=== PATIENT | female | born 1945 | race Caucasian/White ===

== ENCOUNTER 2016-06-27 09:49 | Inpatient (IN) | payer MEDICARE, OTHER ==
[~2016-06-27 09:49] MED LIST: ceFAZolin 1 GM VIAL ONE
[2016-06-27] MEDS ORDERED: LACTATED RINGERS 1,000 ML IV ONE ×3 (10:06→14:32)
[2016-06-27] MEDS ORDERED: LIDOCAINE-MPF 2% 5 ML VIAL IM ONE (12:25)
[2016-06-27] MEDS ORDERED: MORPHINE PF 5 MG/10 ML AMP EP ONE (12:25)
[2016-06-27] MEDS ORDERED: DEXAMETHASONE 4 MG/ML VIAL IVP ONE (12:25)
[2016-06-27] MEDS ORDERED: MIDAZOLAM 2 MG/2 ML VIAL IVP ONE (12:25)
[2016-06-27] MEDS ORDERED: TRANEXAMIC ACID 1,000 MG/10 ML VIAL IV ONE (12:25)
[2016-06-27] MEDS ORDERED: PROPOFOL 200 MG/20 ML VIAL IVP ONE (12:25)
[2016-06-27] MEDS ORDERED: PHENYLEPHRINE 50 MG/5 ML VIAL IV ONE (12:25)
[2016-06-27] MEDS ORDERED: ePHEDrine 50 MG/ML AMP IVP ONE (12:25)
[2016-06-27] MEDS ORDERED: ACETAMINOPHEN 1,000 MG/100 ML VIAL IV ONE (12:25)
[2016-06-27] MEDS ORDERED: KETOROLAC 30 MG/ML VIAL IVP ONE (12:25)
[2016-06-27] MEDS ORDERED: BISACODYL 10 MG SUPP PR PRN (13:23)
[2016-06-27] MEDS ORDERED: ACETAMINOPHEN 325 MG TABLET PO PRN (13:23)
[2016-06-27] MEDS ORDERED: ONDANSETRON 4 MG/2 ML VIAL IVP PRN (13:23)
[2016-06-27] MEDS ORDERED: SODIUM CHLORIDE FLUSH 0.9% 10 ML SYRINGE IVP PRN (13:23)
[2016-06-27] MEDS: D5.45NS W/20 MEQ KCL 1,000 ML IV SCH ×2 (15:08→23:48)
[2016-06-27] MEDS: oxyCOD/ACETAMIN 5 MG/325 MG TABLET PO PRN (19:25)
[2016-06-27] MEDS: ceFAZolin 2 GM/50 ML 50 ML IV SCH (19:26)
[2016-06-27] MEDS: PRAVASTATIN 40 MG TABLET PO SCH (20:46)
[2016-06-27] MEDS: MORPHINE 2 MG/ML SYRINGE IVP PRN ×2 (22:02→23:49)
[2016-06-27] MEDS: SODIUM CHLORIDE FLUSH 0.9% 10 ML SYRINGE IVP SCH ×2 (23:41→23:42)
[2016-06-28] MEDS: MORPHINE 2 MG/ML SYRINGE IVP PRN (02:47)
[2016-06-28] MEDS: ceFAZolin 2 GM/50 ML 50 ML IV SCH (04:06)
[2016-06-28] MEDS: oxyCOD/ACETAMIN 5 MG/325 MG TABLET PO PRN ×4 (04:45→20:54)
[2016-06-28] MEDS: SODIUM CHLORIDE FLUSH 0.9% 10 ML SYRINGE IVP SCH ×3 (06:34→20:57)
[2016-06-28] MEDS: LEVOTHYROXINE 100 MCG TABLET PO SCH (06:41)
[2016-06-28] MEDS: SENNA 8.6 MG TABLET PO PRN ×2 (08:31→20:54)
[2016-06-28] MEDS: ASPIRIN 325 MG TABLET PO SCH ×2 (08:31→20:54)
[2016-06-28] MEDS: D5.45NS W/20 MEQ KCL 1,000 ML IV SCH (10:01)
[2016-06-28] MEDS: PRAVASTATIN 40 MG TABLET PO SCH (20:56)
[2016-06-29] MEDS: oxyCOD/ACETAMIN 5 MG/325 MG TABLET PO PRN ×3 (00:50→11:09)
[2016-06-29] MEDS: SODIUM CHLORIDE FLUSH 0.9% 10 ML SYRINGE IVP SCH (07:00)
[2016-06-29] MEDS: LEVOTHYROXINE 100 MCG TABLET PO SCH (07:00)
[2016-06-29] MEDS: SENNA 8.6 MG TABLET PO PRN (09:00)
[2016-06-29] MEDS: ASPIRIN 325 MG TABLET PO SCH (09:00)
== END 2016-06-29 11:10 | disposition home or self-care (01) | DRG 470 ==
PROC: 0SR902A Replacement of Right Hip Joint with Metal on Polyethylene Synthetic Substitute, Uncemented, Open Approach (ICD-10-PCS; principal; 2016-06-27 11:00)
DX: M16.11 Unilateral primary osteoarthritis, right hip (principal); E03.9 Hypothyroidism, unspecified; D64.9 Anemia, unspecified; R11.0 Nausea; E78.5 Hyperlipidemia, unspecified; Z87.891 Personal history of nicotine dependence

== ENCOUNTER 2017-01-18 08:00 | Outpatient (CLI) | payer MEDICARE, OTHER ==
[2017-01-18 13:28] LABS: BILIRUBIN,TOTAL 0.6 mg/dL (0.2-1.0); BUN - BLOOD UREA NITROGEN 21 mg/dL (6-20); CALCIUM 9.4 mg/dL (8.5-10.3); CARBON DIOXIDE - CO2 28 mmol/L (21-32); CHLORIDE 105 mmol/L (101-111); CHOL/HDL RATIO 2.7 (<4.4); CHOLESTEROL 206 mg/dL; CREATININE 0.7 mg/dL (0.4-1.0); GFR - MDRD 83 (>89); GLUCOSE 96 mg/dL (70-100); HDL CHOLESTEROL 77 mg/dL; LDL/HDL RATIO 1.3 (<4.4); SODIUM 139 mmol/L (135-145); TRIGLYCERIDES 141 mg/dL; VLDL CHOLESTEROL 28 mg/dL
== END 2017-01-18 08:01 | disposition home or self-care (01) ==
LOC: LAB.R 08:00
PROVIDERS: ATTEND Internal Medicine
DX: Z79.899 Other long term (current) drug therapy (principal); Z72.89 Other problems related to lifestyle; E03.9 Hypothyroidism, unspecified
CPT/HCPCS: 80053; 80061; 84443; 86803

== ENCOUNTER 2017-05-16 08:00 | Outpatient (CLI) | payer MEDICARE, OTHER | END 2017-05-16 08:01 | disposition home or self-care (01) | LOC: LAB.R 08:00 | PROVIDERS: ATTEND Nurse Practitioner Primary Care | DX: N39.0 Urinary tract infection, site not specified (principal) | CPT/HCPCS: 87086 ==

== ENCOUNTER 2018-04-05 09:15 | Outpatient (CLI) | payer MEDICARE, OTHER ==
[2018-04-05 13:01] LABS: BASOPHILS % (AUTO) 0.3 %; EOSINOPHILS # (AUTO) 0.1 10^3/uL (0.0-0.7); EOSINOPHILS % (AUTO) 2.1 %; HGB - HEMOGLOBIN 12.7 g/dL (12.0-16.0); LYMPHOCYTES % (AUTO) 40.7 %; MEAN CORPUSCULAR HEMOGLOBIN 33.5 pg (27.0-31.0); MEAN CORPUSCULAR HGB CONC 34.5 g/dL (32.0-36.0); MEAN CORPUSCULAR VOLUME 97.3 fL (81.0-99.0); MEAN PLATELET VOLUME 8.6 fL (7.9-10.8); MONOCYTES # (AUTO) 0.5 10^3/uL (0.0-1.0); NEUTROPHILS # (AUTO) 2.3 10^3/uL (1.5-6.6); NEUTROPHILS % (AUTO) 46.9 %; PLT - PLATELET COUNT 178 10^3/uL (130-450); RED BLOOD COUNT 3.79 10^6/uL (4.20-5.40); WHITE BLOOD COUNT 4.8 x10^3/uL (4.8-10.8)
[2018-04-05 13:15] LABS: ALBUMIN 4.2 g/dL (3.2-5.5); ALBUMIN/GLOBULIN RATIO 1.7 (1.0-2.2); ALKALINE PHOSPHATASE 66 IU/L (42-121); ALT ALANINE AMINOTRANSFERASE 24 IU/L (10-60); AST ASPARTATE AMINOTRANSFERASE 21 IU/L (10-42); BILIRUBIN,TOTAL 0.7 mg/dL (0.2-1.0); BUN - BLOOD UREA NITROGEN 22 mg/dL (6-20); CALCIUM 9.3 mg/dL (8.5-10.3); CARBON DIOXIDE - CO2 27 mmol/L (21-32); CHLORIDE 103 mmol/L (101-111); CHOLESTEROL 208 mg/dL; CREATININE 0.7 mg/dL (0.4-1.0); GFR - MDRD 82 (>89); GLUCOSE 95 mg/dL (70-100); HDL CHOLESTEROL 70 mg/dL; LDL CHOLESTEROL,CALCULATED 106 mg/dL; LDL/HDL RATIO 1.5 (<4.4); SODIUM 137 mmol/L (135-145); TOTAL PROTEIN 6.7 g/dL (6.7-8.2); VLDL CHOLESTEROL 32 mg/dL
[2018-04-06 11:40] LABS: HEPATITIS C ANTIBODY NON-REACTIVE (NON-REACTIVE)
== END 2018-04-05 09:16 | disposition home or self-care (01) ==
LOC: LAB.R 09:15
PROVIDERS: ATTEND Internal Medicine
DX: M16.11 Unilateral primary osteoarthritis, right hip (principal); Z79.899 Other long term (current) drug therapy; E78.5 Hyperlipidemia, unspecified; E03.9 Hypothyroidism, unspecified; Z13.9 Encounter for screening, unspecified; Z72.89 Other problems related to lifestyle
CPT/HCPCS: 80053; 80061; 83721; 84443; 85025; 86803

== ENCOUNTER 2019-02-18 14:33 | Outpatient (CLI) | payer MEDICARE, OTHER ==
--- NOTE | 2019-02-18 16:30 | XRAY Report ---
Reason: COUGH Procedure Date: 02/18/2019 Accession Number: [id number] / [id number] Procedure: XR - Chest 2 View X-Ray CPT Code: 80687 FULL RESULT: EXAM: CHEST RADIOGRAPHY EXAM DATE: 02/18/2019 02:51 PM. CLINICAL HISTORY: COUGH. COMPARISON: None. TECHNIQUE: 2 views. FINDINGS: Lungs/Pleura: No focal opacities evident. No pleural effusion. No pneumothorax. Normal volumes. Mediastinum: Heart and mediastinal contours are unremarkable. Other: Degenerative change in the spine. IMPRESSION: Clear lungs. No acute findings. RADIA
== END 2019-02-18 14:34 | disposition home or self-care (01) ==
LOC: DI 14:33
PROVIDERS: ATTEND Nurse Practitioner
DX: R05 Cough (principal)
CPT/HCPCS: 71046

== ENCOUNTER 2019-07-14 15:34 | Outpatient (CLI) | payer MEDICARE, OTHER ==
[2019-07-14 15:56] LABS: BASOPHILS % (AUTO) 0.3 %; EOSINOPHILS # (AUTO) 0.1 10^3/uL (0.0-0.7); EOSINOPHILS % (AUTO) 1.9 %; HGB - HEMOGLOBIN 13.1 g/dL (12.0-16.0); LYMPHOCYTES # (AUTO) 2.5 10^3/uL (1.5-3.5); LYMPHOCYTES % (AUTO) 40.1 %; MEAN CORPUSCULAR HEMOGLOBIN 32.4 pg (27.0-31.0); MEAN CORPUSCULAR HGB CONC 32.1 g/dL (32.0-36.0); MEAN PLATELET VOLUME 10.3 fL (7.9-10.8); MONOCYTES # (AUTO) 0.5 10^3/uL (0.0-1.0); MONOCYTES % (AUTO) 7.6 %; NEUTROPHILS # (AUTO) 3.2 10^3/uL (1.5-6.6); NEUTROPHILS % (AUTO) 49.8 %; PLT - PLATELET COUNT 194 10^3/uL (130-450); RED BLOOD COUNT 4.04 10^6/uL (4.20-5.40); RED CELL DISTRIBUTION WIDTH 12.2 % (12.0-15.0); WHITE BLOOD COUNT 6.3 x10^3/uL (4.8-10.8)
[2019-07-14 16:08] LABS: ALBUMIN 4.9 g/dL (3.2-5.5); ALBUMIN/GLOBULIN RATIO 1.8 (1.0-2.2); BILIRUBIN,TOTAL 0.5 mg/dL (0.2-1.0); CALCIUM 10.2 mg/dL (8.5-10.3); CREATININE 0.8 mg/dL (0.4-1.0); TOTAL PROTEIN 7.7 g/dL (6.7-8.2)
[2019-07-14] MEDS ORDERED: IOVERSOL 320 50 ML VIAL ONE (16:13)
[2019-07-14] MEDS ORDERED: IOVERSOL 320 100 ML VIAL IVP ONE ×2 (16:13→17:38)
[2019-07-14] MEDS ORDERED: IOVERSOL 320 50 ML VIAL PO ONE (17:38)
--- NOTE | 2019-07-16 02:53 | CT Report ---
Reason: ABDOMINAL PAIN, LLQ Procedure Date: 07/14/2019 Accession Number: [id number] / [id number] Procedure: CT - Abdomen/Pelvis W CPT Code: Final Report FULL RESULT: EXAM: CT ABDOMEN AND PELVIS EXAM DATE: 07/14/2019 05:37 PM. CLINICAL HISTORY: ABDOMINAL PAIN, LLQ. COMPARISONS: None. TECHNIQUE: Routine helical CT imaging was performed through the abdomen and pelvis. IV contrast: OPTI 320 100ML. Enteric contrast: Yes. Reconstructions: Coronal and sagittal. In accordance with CT protocol optimization, one or more of the following dose reduction techniques were utilized for this exam: automated exposure control, adjustment of mA and/or KV based on patient size, or use of iterative reconstructive technique. FINDINGS: Lung Bases: Small hiatal hernia. Liver: Normal. No masses. Gallbladder/Bile Ducts: Unremarkable. Spleen: Normal. Pancreas: Normal. Adrenal Glands: Normal. Kidneys: Normal. No masses or hydronephrosis. Peritoneal Cavity/Bowel: Colonic diverticulosis, without CT evidence of diverticulitis. No free fluid, free air or adenopathy. No masses or acute inflammatory process. The appendix is well visualized and normal. Pelvic Organs: 3.8 cm right adnexal cyst, likely ovarian in etiology. Vasculature: No aneurysms or other significant abnormality. Bones: No significant abnormality. Other: None. IMPRESSION: 3.8 cm right adnexal cyst, likely ovarian in etiology. Consider pelvic ultrasound for further characterization. No evident etiology for patient's left lower quadrant pain. RADIA
== END 2019-07-14 15:35 | disposition home or self-care (01) ==
LOC: LAB 15:34
PROVIDERS: ATTEND Nurse Practitioner
DX: R10.32 Left lower quadrant pain (principal); N94.89 Other specified conditions associated with female genital organs and menstrual cycle
CPT/HCPCS: 36415; 74177; 80053; 85025; Q9967

== ENCOUNTER 2019-07-29 16:31 | Outpatient (CLI) | payer MEDICARE, OTHER ==
--- NOTE | 2019-07-31 11:49 | Ultrasound Report ---
Reason: RIGHT OVARIAN CYST Procedure Date: 07/29/2019 Accession Number: [id number] / [id number] Procedure: US - Pelvic w/Transvaginal CPT Code: Final Report FULL RESULT: EXAM: PELVIC ULTRASOUND EXAM DATE: 07/29/2019 05:30 PM. CLINICAL HISTORY: RIGHT OVARIAN CYST. COMPARISON: ABDOMEN/PELVIS W/ 07/14/2019 5:32 PM. TECHNIQUE: Realtime transabdominal pelvic scan performed to identify the uterus and adnexa and as an overview of other pelvic structures, followed by transvaginal scan to provide greater detail of the uterus and adnexa, with static image documentation. FINDINGS: Uterus: 6.1 x 2.7 x 4.3 cm, volume 36.5 cc. Anteverted position. Normal overall size and echotexture. Masses: None. Endometrium: 2 mm. There is trace simple fluid in the endometrial cavity. Cervix: Unremarkable. Right Ovary: 3.9 x 2.6 x 4.6 cm, volume 24.7 cc. There is a simple cyst measuring 3.6 x 3.0 x 2.2 cm (12.4 cc). No internal septations or solid component. Normal echotexture and blood flow. Left Ovary: 2.3 x 0.9 x 1.1 cm, volume 1.2 cc. Normal echotexture and blood flow. Free Fluid: None. Other: None. IMPRESSION: 1. Right ovarian simple cyst measuring up to 3.6 cm. Recommend ultrasound follow-up in 6-12 months to assess for growth. Recommendations in accordance with Society of Radiologist in Ultrasound (SRU) 2019 consensus guidelines for simple adnexal cysts. 2. Normal left ovary. 3. There is trace simple free fluid in the endometrial cavity. The adjacent endometrium is thin, measuring 2 mm. In a post-menopausal patient, these findings are likely due to endometrial atrophy and cervical stenosis. RADIA
== END 2019-07-29 16:32 | disposition home or self-care (01) ==
LOC: DI 16:31
PROVIDERS: ATTEND Nurse Practitioner
DX: N83.291 Other ovarian cyst, right side (principal)
CPT/HCPCS: 76830; 76856

== ENCOUNTER 2020-07-29 10:52 | Outpatient (CLI) | payer MEDICARE, OTHER ==
[2020-07-29 11:11] LABS: BASOPHILS % (AUTO) 0.5 %; EOSINOPHILS # (AUTO) 0.1 10^3/uL (0.0-0.7); EOSINOPHILS % (AUTO) 1.9 %; LYMPHOCYTES # (AUTO) 1.6 10^3/uL (1.5-3.5); LYMPHOCYTES % (AUTO) 38.8 %; MEAN CORPUSCULAR HEMOGLOBIN 32.6 pg (27.0-31.0); MEAN CORPUSCULAR HGB CONC 32.3 g/dL (32.0-36.0); MEAN PLATELET VOLUME 9.9 fL (7.9-10.8); MONOCYTES # (AUTO) 0.4 10^3/uL (0.0-1.0); MONOCYTES % (AUTO) 10.2 %; NEUTROPHILS % (AUTO) 48.6 %; PLT - PLATELET COUNT 177 10^3/uL (130-450); RED BLOOD COUNT 3.99 10^6/uL (4.20-5.40); WHITE BLOOD COUNT 4.2 x10^3/uL (4.8-10.8)
[2020-07-29 11:31] LABS: ALBUMIN 4.4 g/dL (3.2-5.5); ALBUMIN/GLOBULIN RATIO 1.5 (1.0-2.2); ALKALINE PHOSPHATASE 55 IU/L (42-121); ALT ALANINE AMINOTRANSFERASE 27 IU/L (10-60); AST ASPARTATE AMINOTRANSFERASE 22 IU/L (10-42); BILIRUBIN,TOTAL 0.8 mg/dL (0.2-1.0); BUN - BLOOD UREA NITROGEN 24 mg/dL (6-20); CALCIUM 9.5 mg/dL (8.5-10.3); CARBON DIOXIDE - CO2 26 mmol/L (21-32); CHLORIDE 100 mmol/L (101-111); CHOL/HDL RATIO 2.9 (<4.4); CHOLESTEROL 229 mg/dL; CREATININE 0.7 mg/dL (0.4-1.0); GLUCOSE 109 mg/dL (70-100); HDL CHOLESTEROL 79 mg/dL; LDL CHOLESTEROL,CALCULATED 115 mg/dL; LDL/HDL RATIO 1.5 (<4.4); TOTAL PROTEIN 7.3 g/dL (6.7-8.2); VLDL CHOLESTEROL 35 mg/dL
[2020-07-29] MEDS ORDERED: IOPAMIDOL-300 50 ML VIAL ONE (11:40)
[2020-07-29] MEDS ORDERED: IOVERSOL 320 100 ML VIAL IVP ONE ×2 (11:40→14:32)
--- NOTE | 2020-07-29 13:50 | CT Report ---
PROCEDURE: Abdomen/Pelvis W INDICATIONS: RT OVARIAN CYST CONTRAST: IV CONTRAST: Optiray 320 ml: 100 PO CONTRAST: Isovue 300 ml50 TECHNIQUE: After the administration of IV and oral contrast, 5 mm thick sections acquired from the diaphragms to the symphysis. 5 mm thick coronal and sagittal reformats were acquired. For radiation dose reducti on, the following was used: automated exposure control, adjustment of mA and/or kV according to devan ent size. COMPARISON: CT dated 07/14/2019. Ultrasound examination dated 07/29/2019. FINDINGS: Image quality: Excellent. ABDOMEN: Lung bases: Lung bases are clear. Heart size is normal. Solid organs: Liver and spleen are normal in size and enhancement. Gallbladder is within normal prakash its Biliary system is non dilated. Pancreas enhances normally. No adrenal nodules. Kidneys demons trate normal size and enhancement, without hydronephrosis. Peritoneum and bowel: Small hiatal hernia. Bowel loops demonstrate normal wall thickness and caliber . Normal appendix. No free fluid or air. Diverticulosis of the descending and sigmoid colon. No jc dence of acute diverticulitis. Nodes and vessels: No retroperitoneal or mesenteric adenopathy by size criteria. Aorta and inferior vena cava are normal in size. Miscellaneous: No ventral hernias. PELVIS: Genitourinary: Bladder wall thickness is normal. 38 mm diameter ovoid density within the right adne xal region. Miscellaneous: No inguinal hernias or adenopathy. Bones: No suspicious bony lesions. Right hip arthroplasty. No vertebral body compression fractures. IMPRESSION: 1. No significant change in right adnexal cyst. 2. Small hiatal hernia. 3. Normal appendix. Reviewed by: Troy Gibson MD on 07/29/2020 1:49 PM PST Approved by: Troy Gibson MD on 07/29/2020 1:49 PM PST Station ID: [id number]
[2020-07-29] MEDS ORDERED: IOPAMIDOL-300 50 ML VIAL PO ONE (14:32)
== END 2020-07-29 10:53 | disposition home or self-care (01) ==
LOC: LAB 10:52 → DI 10:53
PROVIDERS: ATTEND Nurse Practitioner
DX: Z00.00 Encounter for general adult medical examination without abnormal findings (principal); N83.291 Other ovarian cyst, right side; Z78.0 Asymptomatic menopausal state; E03.9 Hypothyroidism, unspecified; E78.5 Hyperlipidemia, unspecified; K44.9 Diaphragmatic hernia without obstruction or gangrene
CPT/HCPCS: 36415; 80053; 80061; 83721; 84443; 85025

== ENCOUNTER 2020-07-29 11:18 | Outpatient (CLI) | payer MEDICARE, OTHER ==
--- NOTE | 2020-07-30 13:02 | Mammography Report ---
BILATERAL DIGITAL SCREENING MAMMOGRAM 3D/2D: 07/29/2020 CLINICAL: Routine screening. Comparison is made to exam dated: 08/17/2010 mammogram - [facility]. The tissue of both breasts is predominantly fatty. There is a stable benign focal asymmetry in the right breast. No significant masses, calcifications, or other findings are seen in either breast. There has been no significant interval change. IMPRESSION: BENIGN There is no mammographic evidence of malignancy. A 1 year screening mammogram is recommended. This exam was interpreted at Station ID: [id number]. NOTE: For mammograms, a report in lay terms will be sent to the patient. Approximately 15% of breast malignancies will not be visualized mammographically. In the management of a palpable breast mass, a negative mammogram must not discourage biopsy of a clinically suspicious lesion. Electronically Signed By: Adonay Sierra acr/penrad:07/29/2020 15:26:56 ACR BI-RADS Category 2: Benign Finding(s) 3342F PARENCHYMAL PATTERN: (F) - The breast(s) demonstrate(s) diffuse fatty replacement. BI-RADS CATEGORY: (2) - 2 RECOMMENDATION: (ANNUAL) - Recommend routine annual screening mammography. [id number] 1 year screening LATERALITY: (B)
== END 2020-07-29 11:19 | disposition home or self-care (01) ==
LOC: DI 11:18
PROVIDERS: ATTEND Nurse Practitioner
DX: Z12.31 Encounter for screening mammogram for malignant neoplasm of breast (principal)

== ENCOUNTER 2020-07-29 11:20 | Outpatient (CLI) | payer MEDICARE, OTHER ==
--- NOTE | 2020-08-02 06:43 | DEXA Report ---
PROCEDURE: Dexa Spine and/or Hip INDICATIONS: POSTMENOPAUSAL TECHNIQUE: Dual energy x-ray absorptiometry (DXA) was performed on a [employer] System. Regions measur ed are the AP Spine, femoral neck, and if needed forearm. COMPARISON: None. FINDINGS: Lumbar Spine: Bone Mineral Density 1.172 g/cm/cm,T score -0.1, normal Left Hip: Bone Mineral Density 0.732 g/cm/cm,T score -2.2, osteopenia Left Femoral Neck: Bone Mineral Density 0.718 g/cm/cm, T score -2.3, osteopenia (T score greater or equal to -1.0: NORMAL) (T score from -1.1 to -2.4: OSTEOPENIA) (T score less than or equal to -2.5 to: OSTEOPOROSIS) Impression: Osteopenia elevates the patient's 10 year fracture risk. Patients with diagnosis of osteoporosis or osteopenia should have regular bone mineral density assess ment. For those eligible for Medicare, routine testing is allowed once every 2 years. Testing frequ ency can be increased for patients who have rapidly progressing disease or for those who are receivin g medical therapy to restore bone mass. Reviewed by: Shania Quezada MD on 07/30/2020 8:55 AM PST Approved by: Shania Quezada MD on 07/30/2020 8:55 AM PST Station ID: [id number]
== END 2020-07-29 11:21 | disposition home or self-care (01) ==
LOC: DI 11:20
PROVIDERS: ATTEND Nurse Practitioner
DX: Z00.00 Encounter for general adult medical examination without abnormal findings (principal); M85.89 Other specified disorders of bone density and structure, multiple sites; Z78.0 Asymptomatic menopausal state; N83.291 Other ovarian cyst, right side; E78.5 Hyperlipidemia, unspecified; E03.9 Hypothyroidism, unspecified; K44.9 Diaphragmatic hernia without obstruction or gangrene
CPT/HCPCS: 36415; 74177; 77080; 80053; 80061; 84443; 85025; Q9967; 83721

== ENCOUNTER 2022-05-31 15:40 | Outpatient (CLI) | payer MEDICARE, OTHER ==
--- NOTE | 2022-06-01 12:53 | Ultrasound Report ---
PROCEDURE: Pelvic w/Transvaginal INDICATIONS: OVARIAN CYST TECHNIQUE: Real-time scanning was performed of the pelvic organs, with image documentation. Additional endovagi nal scanning was necessary due to incomplete visualization of the adnexal and endometrial structures by transabdominal scanning. COMPARISON: 07/29/2019 FINDINGS: Uterus: Uterus is anteverted and normal in size at 6.8 x 3.0 x 4.4 cm. The myometrium is heterogene ous. The endometrium measures 2 mm in combined thickness. Possible 0.4 cm intrauterine polyp. Small amount of fluid within the endometrial cavity. There is a right posterior fundal intramural uterine f ibroid measuring 1.2 x 0.8 x 0.8 cm. This appears calcified. There is a midline intramural fibroid me asuring 0.7 x 0.6 x 0.9 cm. Ovaries: The right ovary measures 3.2 x 2.2 x 2.3 cm, with a calculated ovarian volume of 8.5 cc. T he left ovary measures 2.0 x 0.7 x 1.0 cm, with a calculated ovarian volume of 0.7 cc. There is a rig ht ovarian cyst measuring 2.3 x 1.6 x 1.7 cm, previously 3.0 x 2.2 x 3.6 cm. The left ovary has as a normal sonographic appearance. Less than 12 follicles can be seen in each ovary. No adnexal masses are seen. Other: No pathologic free abdominal or pelvic fluid. IMPRESSION: 1. Pelvic ultrasound without acute sonographic abnormalities. 2. Persistent but interval decrease in size of relatively simple appearing 2.3 cm right ovarian cyst, previously measuring up to 3.6 cm in size. 3. Possible endometrial polyp measuring 0.4 cm. 4. Intrauterine fibroids as described above. Reviewed by: Bright Lima MD on 06/01/2022 12:51 PM PST Approved by: Bright Lima MD on 06/01/2022 12:51 PM PST Station ID: [id number]
== END 2022-05-31 15:41 | disposition home or self-care (01) ==
LOC: DI 15:40
PROVIDERS: ATTEND Physician Assistant
DX: N83.291 Other ovarian cyst, right side (principal); D25.1 Intramural leiomyoma of uterus

== ENCOUNTER 2022-06-01 09:36 | Outpatient (CLI) | payer MEDICARE, OTHER ==
[2022-06-01 09:48] LABS: BASOPHILS % (AUTO) 0.3 %; EOSINOPHILS # (AUTO) 0.2 10^3/uL (0.0-0.7); HCT - HEMATOCRIT 39.2 % (37.0-47.0); HGB - HEMOGLOBIN 12.6 g/dL (12.0-16.0); LYMPHOCYTES # (AUTO) 2.1 10^3/uL (1.5-3.5); LYMPHOCYTES % (AUTO) 28.1 %; MEAN CORPUSCULAR HEMOGLOBIN 32.5 pg (27.0-31.0); MEAN CORPUSCULAR HGB CONC 32.1 g/dL (32.0-36.0); MEAN PLATELET VOLUME 9.9 fL (7.9-10.8); MONOCYTES # (AUTO) 0.6 10^3/uL (0.0-1.0); MONOCYTES % (AUTO) 7.8 %; NEUTROPHILS # (AUTO) 4.6 10^3/uL (1.5-6.6); NEUTROPHILS % (AUTO) 61.7 %; PLT - PLATELET COUNT 210 10^3/uL (130-450); RED BLOOD COUNT 3.88 10^6/uL (4.20-5.40); RED CELL DISTRIBUTION WIDTH 12.6 % (12.0-15.0); WHITE BLOOD COUNT 7.5 x10^3/uL (4.8-10.8)
[2022-06-01 10:15] LABS: ALBUMIN 4.3 g/dL (3.2-5.5); ALBUMIN/GLOBULIN RATIO 1.4 (1.0-2.2); ALKALINE PHOSPHATASE 69 IU/L (42-121); ALT ALANINE AMINOTRANSFERASE 17 IU/L (10-60); AST ASPARTATE AMINOTRANSFERASE 17 IU/L (10-42); BILIRUBIN,TOTAL 0.8 mg/dL (0.2-1.0); BUN - BLOOD UREA NITROGEN 18 mg/dL (6-20); CALCIUM 9.3 mg/dL (8.5-10.3); CARBON DIOXIDE - CO2 28 mmol/L (21-32); CHLORIDE 102 mmol/L (101-111); CHOL/HDL RATIO 2.7 (<4.4); CHOLESTEROL 211 mg/dL; CREATININE 0.8 mg/dL (0.4-1.0); GFR - MDRD 70 (>89); GLUCOSE 109 mg/dL (70-100); HDL CHOLESTEROL 79 mg/dL; LDL CHOLESTEROL,CALCULATED 106 mg/dL; LDL/HDL RATIO 1.3 (<4.4); POTASSIUM 4.1 mmol/L (3.5-5.0); SODIUM 136 mmol/L (135-145); TOTAL PROTEIN 7.3 g/dL (6.7-8.2); TRIGLYCERIDES 132 mg/dL; VLDL CHOLESTEROL 26 mg/dL
[2022-06-01 10:25] LABS: THYROID STIMULATING HORMONE 3.44 uIU/mL (0.34-5.60)
[2022-06-01 10:27] LABS: FREE T3 2.33 pg/mL (2.5-3.9); FREE T4 (FREE THYROXINE) 0.92 ng/dL (0.58-1.64)
== END 2022-06-01 09:37 | disposition home or self-care (01) ==
LOC: LAB 09:36
PROVIDERS: ATTEND Physician Assistant
DX: E78.5 Hyperlipidemia, unspecified (principal); E03.9 Hypothyroidism, unspecified; Z79.899 Other long term (current) drug therapy
CPT/HCPCS: 36415; 80053; 80061; 83721; 84439; 84443; 84481; 85025

== ENCOUNTER 2023-03-26 13:30 | Outpatient (CLI) | payer MEDICARE, OTHER | END 2023-03-26 13:45 | disposition home or self-care (01) | LOC: LAB.N 13:30 | PROVIDERS: ATTEND Physician Assistant Medical | DX: N30.00 Acute cystitis without hematuria (principal) | CPT/HCPCS: 87086; 87181 ==

== ENCOUNTER 2023-07-10 09:21 | Outpatient (CLI) | payer MEDICARE, OTHER ==
[2023-07-10 09:47] LABS: BASOPHILS % (AUTO) 0.4 %; EOSINOPHILS # (AUTO) 0.1 10^3/uL (0.0-0.7); EOSINOPHILS % (AUTO) 2.4 %; HCT - HEMATOCRIT 39.8 % (37.0-47.0); HGB - HEMOGLOBIN 12.6 g/dL (12.0-16.0); LYMPHOCYTES # (AUTO) 2.4 10^3/uL (1.5-3.5); LYMPHOCYTES % (AUTO) 44.1 %; MEAN CORPUSCULAR HEMOGLOBIN 32.1 pg (27.0-31.0); MEAN CORPUSCULAR HGB CONC 31.7 g/dL (32.0-36.0); MEAN CORPUSCULAR VOLUME 101.5 fL (81.0-99.0); MEAN PLATELET VOLUME 10.4 fL (7.9-10.8); MONOCYTES # (AUTO) 0.5 10^3/uL (0.0-1.0); MONOCYTES % (AUTO) 9.4 %; NEUTROPHILS # (AUTO) 2.4 10^3/uL (1.5-6.6); NEUTROPHILS % (AUTO) 43.5 %; PLT - PLATELET COUNT 195 10^3/uL (130-450); RED BLOOD COUNT 3.92 10^6/uL (4.20-5.40); RED CELL DISTRIBUTION WIDTH 12.9 % (12.0-15.0); WHITE BLOOD COUNT 5.5 x10^3/uL (4.8-10.8)
[2023-07-10 10:09] LABS: THYROID STIMULATING HORMONE 2.16 uIU/mL (0.34-5.60)
[2023-07-10 10:10] LABS: % IRON SATURATION 19 % (20-50); ALBUMIN 4.5 g/dL (3.2-5.5); ALBUMIN/GLOBULIN RATIO 1.8 (1.0-2.2); ALKALINE PHOSPHATASE 57 IU/L (42-121); ALT ALANINE AMINOTRANSFERASE 15 IU/L (10-60); AST ASPARTATE AMINOTRANSFERASE 15 IU/L (10-42); BILIRUBIN,TOTAL 0.5 mg/dL (0.2-1.0); BUN - BLOOD UREA NITROGEN 21 mg/dL (6-20); CALCIUM 9.8 mg/dL (8.5-10.3); CARBON DIOXIDE - CO2 29 mmol/L (21-32); CHLORIDE 106 mmol/L (101-111); CHOL/HDL RATIO 2.7 (<4.4); CHOLESTEROL 199 mg/dL; CREATININE 0.9 mg/dL (0.6-1.3); GFR - MDRD 61 (>89); GLUCOSE 103 mg/dL (74-104); HDL CHOLESTEROL 75 mg/dL; IRON 80 ug/dL (50-212); LDL CHOLESTEROL,CALCULATED 85 mg/dL; LDL/HDL RATIO 1.1 (<4.4); POTASSIUM 4.3 mmol/L (3.5-4.5); SODIUM 140 mmol/L (135-145); TOTAL IRON BINDING CAPACITY 413 ug/dL (250-450); TRANSFERRIN 295 mg/dL (203-362); TRIGLYCERIDES 197 mg/dL (48-352); VLDL CHOLESTEROL 39 mg/dL
[2023-07-10 10:14] LABS: FERRITIN 131.5 ng/mL (11.0-306.8)
--- NOTE | 2023-07-10 13:17 | XRAY Report ---
PROCEDURE: Chest 2V INDICATIONS: CHEST WALL PAIN TECHNIQUE: 2 views of the chest were acquired. COMPARISON: None. FINDINGS: Surgical changes and devices: None. Lungs and pleura: No dense consolidation or pleural effusion. Right hemidiaphragm eventration. Mediastinum: Normal heart size Bones and chest wall: Degenerative changes. Possible left mid rib fracture, age indeterminate. IMPRESSION: No acute radiographic abnormality. Possible left mid rib fracture is age-indeterminate. Reviewed by: Jose Gregory MD on 07/10/2023 1:15 PM PST Approved by: Jose Gregory MD on 07/10/2023 1:15 PM PST Station ID: [id number]
== END 2023-07-10 09:22 | disposition home or self-care (01) ==
LOC: LAB 09:21
PROVIDERS: ATTEND Physician Assistant
DX: R07.89 Other chest pain (principal); E78.5 Hyperlipidemia, unspecified; L65.9 Nonscarring hair loss, unspecified; E03.9 Hypothyroidism, unspecified
CPT/HCPCS: 36415; 80053; 80061; 82728; 83540; 83721; 84443; 84466; 85025

== ENCOUNTER 2023-09-11 14:19 | Outpatient (CLI) | payer MEDICARE, OTHER ==
--- NOTE | 2023-09-11 16:31 | DEXA Report ---
PROCEDURE: Dexa Spine and/or Hip INDICATIONS: POST MENOPAUSAL TECHNIQUE: Dual energy x-ray absorptiometry (DXA) was performed on a [employer]. Regions measur ed are the AP Spine, femoral neck, and if needed forearm. COMPARISON: DEXA on July 29, 2020 FINDINGS: Lumbar Spine: Bone Mineral Density: 1.196 g/cm/cm,T score: 0.1. Since the most recent prior study, there has been a statistically significant decrease in bone mineral density by 2.6 percent. Left Femoral Neck: Bone Mineral Density: 0.717 g/cm/cm, T score: -2.3. Left Hip: Bone Mineral Density: 0.714 g/cm/cm,T score: -2.3. There has been no statistically significant change in bone mineral density since the prior study. (T score greater or equal to -1.0: NORMAL) (T score from -1.1 to -2.4: OSTEOPENIA) (T score less than or equal to -2.5 to: OSTEOPOROSIS) Impression: By WHO criteria, this patient has low bone density (osteopenia). Interval statistical decrease in bone mineral density of the lumbar spine. No statistical interval ch audra in bone mineral density of the hip. Patients with diagnosis of osteoporosis or osteopenia should have regular bone mineral density assess ment. For those eligible for Medicare, routine testing is allowed once every 2 years. Testing frequ ency can be increased for patients who have rapidly progressing disease or for those who are receivin g medical therapy to restore bone mass. Reviewed by: Tori Bautista MD on 09/11/2023 4:30 PM PDT Approved by: Tori Bautista MD on 09/11/2023 4:30 PM PDT Station ID: [id number]
== END 2023-09-11 14:20 | disposition home or self-care (01) ==
LOC: DI 14:19
PROVIDERS: ATTEND Physician Assistant
DX: M85.89 Other specified disorders of bone density and structure, multiple sites (principal); Z78.0 Asymptomatic menopausal state